=== PATIENT | female | born 1930 | race Caucasian/White ===

== ENCOUNTER 2017-02-13 15:08 | Inpatient (IN) | payer OTHER, MEDICARE ==
[~2017-02-13] VITALS: Ht 152.4 cm; Wt 76.7 kg
[~2017-02-13 15:08] MED LIST: ACETAMINOPHEN-1 EAC1 PO; ALDACTONE25 MG PO; B COMPLEX1 EACH PO; CAL-MAG-ZINC T1 EACH PO; CARDIZEM CD120 MG PO; CENTRUM SPECIA1 EACH PO; CENTRUM TABLET1 EACH PO; CITRUCEL CAPLET1 TA1 PO; CITRUCEL CAPLET1 TAB; CITRUCEL500 MG PO; CLARITIN10 MG PO; COLACE 100 MG100 MG PO; DETROL LA2 MG; DULOXETINE HCL30 MG PO; FLEXERIL; FLEXERIL PO; FLOMAX PO; FLOMAX0.4 MG PO; FLONASE 0.05%50 MCG NASAL; FUROSEMIDE 40 M40 M1 PO; GABAPENTIN100 MG PO; GRALISE600 MG PO; IBUPROFEN 200200 M1 PO; IRON PO; IRON325 PO; KLOR-CON 10 ER10 MEQ; KLOR-CON 1010 MEQ PO; LEVAQUIN 250 M250 MG PO; LEVOTHROID PO; LEVOTHYROXINE0.05 MG PO; LUMIGAN2.5 M1 OPHTHALMIC; MACROBID 100 M100 M1 PO; NASONEX17 GM SPRAY; NORCO 10-325 T1 EACH; OCUVITE EXTRA1 EACH PO; OCUVITE TABLET1 EAC1 PO; OSTEO BI-FLEX1 EAC1 PO; PERIDEX 0.12%473 M1; PREDNISONE 20 M20 M1 PO; PREDNISONE 20 M20 MG; PRESERVISION A1 EAC1 PO; PRESERVISION A1 EAC2 PO; PRILOSEC 20 MG20 MG PO; SPIRONOLACT/HCT1 TAB PO; SUPER B-COMPLE1 EAC2 PO; TRAMADOL 50 MG50 MG PO; ULTRAM 50MG TAB50 MG; URECHOLINE 25 M25 M1 PO; VALTREX1000 MG PO; VITAMIN D-32000 UNIT PO; ZOLOFT100 MG PO; ZYRTEC10 M2 PO
[2017-02-13 15:11] VITALS: BP 139/66
[2017-02-13 15:38] LABS: URINE BILIRUBIN NEGATIVE (Negative); URINE BLOOD 3+ (Negative); URINE COLOR YELLOW; URINE GLUCOSE-RANDOM* NEGATIVE (Negative); URINE KETONES NEGATIVE (Negative); URINE NITRITE POSITIVE (Negative); URINE PROTEIN (DIPSTICK) 1+ (Negative); URINE UROBILINOGEN 0.2 E.U./dl (0.2-1.0)
[2017-02-13 15:44] LABS: CASTS None Seen /LPF (None Seen); CRYSTALS None Seen /LPF (None Seen); SQUAMOUS None Seen /LPF (0-3); URINE RBC 3-10 Few /HPF (0-2); URINE WBC >25 Many /HPF (0-5)
[2017-02-13 16:05] LABS: CALCIUM 8.5 mg/dL (8.5-10.1); CREATININE 0.9 mg/dL (0.6-1.0); POTASSIUM 5.2 mmol/L (3.5-5.1)
[2017-02-13 16:13] LABS: ALBUMIN 3.5 g/dL (3.4-5.0); TOTAL BILIRUBIN 0.3 mg/dL (<0.1-1.0); TOTAL PROTEIN 6.9 g/dL (6.4-8.2)
[2017-02-13 16:29] LABS: ABSOLUTE NEUTROPHILS 9.5 thou/uL (1.4-8.2); BASOPHILS 0.9 % (0.0-2.0); EOSINOPHILS 2.4 % (0.0-3.0); HEMATOCRIT 39.1 % (37.0-47.0); LYMPHOCYTES 18.4 % (24.0-44.0); MANUAL DIFF NO; MCH 30.2 pg (26.0-34.0); MCHC 33.3 g/dL (28.0-37.0); MCV 90.6 fL (80.0-100.0); MONOCYTES 6.4 % (1.0-8.0); PLATELET COUNT 261 thou/uL (150-400); POLYS 71.9 % (36.0-66.0); RBC 4.31 mil/uL (4.20-5.00); RDW 13.2 % (10.5-14.5); WBC 13.2 thou/uL (4.0-11.0)
[2017-02-13 17:12] VITALS: BP 139/66
[2017-02-13 18:45] VITALS: BP 130/78
[2017-02-13 20:00] VITALS: BP 134/69
[2017-02-14] VITALS: BP 146/49
[2017-02-14 03:58] VITALS: BP 146/74
[2017-02-14 06:24] LABS: ABSOLUTE NEUTROPHILS 6.9 thou/uL (1.4-8.2); BASOPHILS 0.7 % (0.0-2.0); EOSINOPHILS 3.5 % (0.0-3.0); HEMATOCRIT 36.9 % (37.0-47.0); HEMOGLOBIN 12.3 gm/dL (12.0-15.0); LYMPHOCYTES 24.2 % (24.0-44.0); MCH 30.4 pg (26.0-34.0); MCHC 33.3 g/dL (28.0-37.0); MCV 91.2 fL (80.0-100.0); MONOCYTES 6.7 % (1.0-8.0); PLATELET COUNT 242 thou/uL (150-400); POLYS 64.9 % (36.0-66.0); RBC 4.04 mil/uL (4.20-5.00); RDW 13.5 % (10.5-14.5); WBC 10.6 thou/uL (4.0-11.0)
[2017-02-14 06:32] LABS: MANUAL DIFF NO
[2017-02-14 06:38] LABS: CALCIUM 8.3 mg/dL (8.5-10.1)
[2017-02-14 06:43] LABS: POTASSIUM 4.1 mmol/L (3.5-5.1)
[2017-02-14 07:56] VITALS: BP 170/69
[2017-02-14 16:47] VITALS: BP 135/69
[2017-02-14 20:00] VITALS: BP 154/68
[2017-02-15 04:00] VITALS: BP 170/73
[2017-02-15 08:05] VITALS: BP 175/83
[2017-02-15] MEDS ORDERED: KEFLEX500 MG PO (12:54)
[2017-02-15 13:24] VITALS: BP 175/83
[2017-02-16] MEDS ORDERED: ROBAXIN500 MG PO (11:55)
[2017-02-16] MEDS ORDERED: TRAMADOL 50 MG50 MG PO (11:55)
== END 2017-02-15 14:08 | disposition home or self-care (01) | DRG 871 ==
LOC: ER 15:08 → 4E 16:59 → EROBS 16:59 → 4E 18:55 → ENTRNSPT 02-15 13:56 → 4E 02-15 14:08
PROVIDERS: Nurse Practitioner; Physician Assistant
DX: A41.9 Sepsis, unspecified organism (principal); G93.41 Metabolic encephalopathy; N39.0 Urinary tract infection, site not specified; E87.5 Hyperkalemia; E86.0 Dehydration; E03.9 Hypothyroidism, unspecified; H40.9 Unspecified glaucoma; K21.9 Gastro-esophageal reflux disease without esophagitis; G89.4 Chronic pain syndrome; Z86.73 Personal history of transient ischemic attack (TIA), and cerebral infarction without residual deficits; Z98.42 Cataract extraction status, left eye; Z90.710 Acquired absence of both cervix and uterus; Z98.41 Cataract extraction status, right eye; Z91.02 Food additives allergy status; Z82.49 Family history of ischemic heart disease and other diseases of the circulatory system; Z79.899 Other long term (current) drug therapy
CPT/HCPCS: 10084

== ENCOUNTER 2017-02-16 10:30 | Emergency (ER) | payer OTHER, MEDICARE ==
[~2017-02-16] VITALS: Ht 152.4 cm; Wt 79.4 kg
[~2017-02-16 10:30] MED LIST changes: +KEFLEX500 MG PO
[2017-02-16] MEDS ORDERED: TRAMADOL 50 MG50 MG PO (11:55)
[2017-02-16] MEDS ORDERED: ROBAXIN500 MG PO (11:55)
== END 2017-02-16 12:00 | disposition home or self-care (01) ==
LOC: ER 10:30
DX: G44.209 Tension-type headache, unspecified, not intractable (principal); M43.6 Torticollis; E03.9 Hypothyroidism, unspecified; G89.29 Other chronic pain; K21.9 Gastro-esophageal reflux disease without esophagitis; Z91.018 Allergy to other foods; Z90.89 Acquired absence of other organs; Z87.440 Personal history of urinary (tract) infections; Z90.710 Acquired absence of both cervix and uterus; Z86.73 Personal history of transient ischemic attack (TIA), and cerebral infarction without residual deficits